=== PATIENT | male | born 1995 | race Two or more races ===

== ENCOUNTER 2024-05-20 20:55 | Emergency (ER) | payer OTHER ==
[~2024-05-20] VITALS: Ht 177.8 cm; Wt 51.3 kg
[2024-05-20] MEDS ORDERED: FAMOTIDINE/PF 20 MG/2 ML VIAL ONE (21:39)
[2024-05-20] MEDS ORDERED: CEFTRIAXONE SODIUM 1,000 MG VIAL ONE (21:39)
[2024-05-20] MEDS ORDERED: ACETAMINOPHEN 500 MG GEL..CAP PO ONE (21:40)
[2024-05-20] MEDS ORDERED: 0.9 % SODIUM CHLORIDE 1,000 ML IV ONE (21:45)
[2024-05-20] MEDS ORDERED: CEFTRIAXONE SODIUM 1,000 MG VIAL IV ONE (21:45)
[2024-05-20] MEDS ORDERED: FAMOtidine 10 MG/ML (4ML VIAL) IV ONE (21:45)
[2024-05-20 22:14] LABS: HEMATOCRIT 39.5 % (39.0-48.0); HEMOGLOBIN 13.2 g/dL (13-16.00); MEAN CELL VOLUME 82.4 fL (80.0-100.00); MEAN CORPUSCULAR HEMOGLOBIN 27.5 pg (27.00-32.0); MEAN CORPUSCULAR HGB CONC 33.4 g/dl (32.0-36.0); PLATELET COUNT 248 K/uL (150-450); RED BLOOD COUNT 4.79 M/uL (4.00-6.00)
[2024-05-20 22:23] LABS: ERYTHROCYTE SEDIMENTATION RATE 9 mm/hr
[2024-05-20 22:35] LABS: ALBUMIN 3.9 gm/dL (3.4-5.0); ALKALINE PHOSPHATASE 75 U/L (50-136); ALT/SGPT 17 U/L (12-78); ANION GAP 10 (10.0-20.0); AST/SGOT 11 U/L (15-37); BLOOD UREA NITROGEN 14 mg/dL (7-18); BUN CREA RATIO 16 (7.0-25.0); CALCIUM 8.8 mg/dL (8.5-10.1); CARBON DIOXIDE 30 mEq/L (21-32); CHLORIDE 108 mmol/L (98-107); CREATININE SERUM 0.86 mg/dL (0.70-1.30); GFR 104.41; GLOBULINA 3.3 G/DL (2.4-3.5); GLUCOSE FASTING 82 mg/dL (65-100); OSMOLALITY SERUM 286 MOSM/KG (275-295); POTASSIUM 4.14 mEq/L (3.5-5.1); SODIUM 144 mmol/L (136-145); TOTAL PROTEIN 7.2 gm/dL (6.4-8.2)
[2024-05-20 22:41] LABS: C-REACTIVE PROTEIN < 0.29 MG/DL (0.00-0.29)
[2024-05-20] MEDS ORDERED: KETO10TA2 PO (23:07)
== END 2024-05-20 23:26 | disposition home or self-care (01) ==
LOC: ER 20:57
PROVIDERS: General Practice
DX: T84.498A Other mechanical complication of other internal orthopedic devices, implants and grafts, initial encounter (principal)

== ENCOUNTER 2025-01-01 03:21 | Emergency (ER) | payer OTHER ==
[~2025-01-01] VITALS: Ht 177.8 cm; Wt 60.3 kg
[~2025-01-01 03:21] MED LIST: KETO10TA2 PO
[2025-01-01] MEDS ORDERED: KETOROLAC TROMETHAMINE 60 MG VIAL IM STA (04:11)
[2025-01-01] MEDS ORDERED: CLINDAMYCIN PHOSPHATE 150 MG/ML (600mg) IM STA (04:11)
[2025-01-01] MEDS ORDERED: TRAMADOL HCL 50 MG TABLET PO STA (04:12)
[2025-01-01] MEDS ORDERED: CLINDAMYCIN PHOSPHATE 150 MG/ML (900mg) ONE (04:18)
[2025-01-01] MEDS ORDERED: KETOROLAC TROMETHAMINE 30 MG VIAL ONE (04:18)
[2025-01-01] MEDS ORDERED: KETOROLAC TROMETHAMINE 60 MG VIAL IM ONE (04:19)
== END 2025-01-01 04:33 | disposition home or self-care (01) ==
LOC: ER 03:22
DX: K04.7 Periapical abscess without sinus (principal)

== ENCOUNTER → 2025-01-25 | Emergency (ER) | payer OTHER ==
[~2025-01-25] VITALS: Ht 177.8 cm; Wt 59.0 kg
== END | disposition left against medical advice (07) ==
LOC: ER 23:28
DX: Z53.21 Procedure and treatment not carried out due to patient leaving prior to being seen by health care provider (principal)

== ENCOUNTER → 2025-02-16 | Emergency (ER) | payer OTHER ==
[~2025-02-16] VITALS: Ht 177.8 cm; Wt 59.0 kg
[~2025-02-16] MED LIST changes: +ATARAX10 MG PO; +DEXAMETHASONE SODIUM PHOSPHATE 4 MG/ML VIAL IM ONE; +DEXAMETHASONE SODIUM PHOSPHATE 4 MG/ML VIAL ONE; +LAMOTRIGINE5 MG PO; +ZYRTEC10 MG PO; +hydrOXYzine HCL 25 MG TABLET PO ONE; +hydrOXYzine PAMOATE 25 MG CAPSULE PO ONE
== END | disposition home or self-care (01) ==
LOC: ER 14:35
DX: T78.40XA Allergy, unspecified, initial encounter (principal); R21 Rash and other nonspecific skin eruption